=== PATIENT | male | born 2000 | race Caucasian/White ===

== ENCOUNTER 2024-05-30 19:27 | Outpatient (REF) | payer BC, SELFPAY ==
--- NOTE | ~2024-05-30 | MR_ITS ---
EXAMINATION: MR KNEE WITHOUT CONTRAST, LEFT CLINICAL INFORMATION: Left knee pain following injury. COMPARISON: None available. TECHNIQUE: MRI of the knee without contrast was performed using routine sequences on a high-field scanner. FINDINGS: MENISCI: Medial Meniscus: Intact Lateral Meniscus: Intact LIGAMENTS: Cruciate: Increased T2 signal throughout the anterior cruciate ligament, which appears attenuated. Findings predominantly involve the posterior bundle and are consistent with an acute grade 2 sprain/partial tear. Mild adjacent soft tissue edema. Intact posterior cruciate ligament. Collateral: Intact. EXTENSOR MECHANISM: Intact. ARTICULAR CARTILAGE/BONE: Patellofemoral Compartment: Intact articular cartilage. Medial Compartment: Intact articular cartilage. Lateral Compartment: Intact articular cartilage. JOINT FLUID AND BURSAE: Small joint effusion. MR/MR knee LT wo con IMPRESSION: 1. Acute grade 2 sprain/partial tear of the anterior cruciate ligament. 2. No meniscal tear. 3. Small joint effusion. Electronically signed by: Richard Zacarias MD 05/31/2024 09:20 AM EDT
== END 2024-05-30 19:28 | disposition home or self-care (01) ==
LOC: HO.MRI 19:27
PROVIDERS: PCP Family Medicine; Visit Provider Family Medicine
DX: M25.562 Pain in left knee (principal)
CPT/HCPCS: 73721